=== PATIENT | female | born 1955 | race Caucasian/White ===

== ENCOUNTER 2018-08-07 11:57 | Emergency (ER) | payer BC ==
[~2018-08-07] VITALS: Ht 162.6 cm; Wt 122.7 kg
[~2018-08-07 11:57] MED LIST: ALBUTEROL1.25 MG/3 INH; COZAAR100 MG PO; EFFEXOR100 MG PO; LEVAQUIN750 MG PO; METAMUCIL FIB1 WAFER PO; MIRALAX17 GM PO; PERFOROMIS20 MCG/21 INH; PROTONIX40 MG PO; SINGULAIR10 MG PO; STERAPRED 5MG 125 MG PO
[2018-08-07 12:01] VITALS: Ht 162.6 cm; Wt 122.7 kg
[2018-08-07] MEDS ORDERED: BUPROPION XL150 MG PO (12:04)
[2018-08-07] MEDS ORDERED: CELEXA20 MG PO (12:05)
[2018-08-07] MEDS ORDERED: PROPRANOLOL HCL60 M1 PO (12:05)
[2018-08-07] MEDS ORDERED: NORVASC5 MG PO (12:06)
[2018-08-07] MEDS ORDERED: ZITHROMAX250 MG PO (12:06)
[2018-08-07 13:59] LABS: BASOPHILS 0.6 % (0-2); EOSINOPHILS 4.9 % (0-7); HEMATOCRIT 40.3 % (36.0-48.0); HEMOGLOBIN 13.7 g/dL (12-16); IMMATURE GRANULOCYTES 0.2 % (0-5); LYMPHOCYTES 41.4 % (15-50); MCV 91.2 fL (80.0-100.0); MEAN PLATELET VOLUME 9.7 fL (7.4-10.4); MONOCYTES 8.6 % (2-11); NEUTROPHILS 44.3 % (40-80); PLATELET COUNT 336 10x3/uL (130-400); RBC 4.42 10x6/uL (4.00-5.40); RDW 13.5 % (11.5-14.5); WBC 6.5 10x3/uL (4.8-10.8)
[2018-08-07 14:16] LABS: ALBUMIN 3.1 g/dL (3.4-5.0); ALKALINE PHOSPHATASE 74 U/L (46-116); ALT (SGPT) 26 U/L (10-68); BILIRUBIN - TOTAL 0.21 mg/dL (0.2-1.3); CALC OSMOLALITY 281 mosm/kg (275-300); CALCIUM 8.5 mg/dL (8.5-10.1); CARBON DIOXIDE 26.4 mmol/L (21.0-32.0); CHLORIDE - SERUM 107 mmol/L (98-107); CREATININE - SERUM 0.9 mg/dL (0.6-1.3); GLUCOSE 123 mg/dL (74-106); POTASSIUM - SERUM 4.1 mmol/L (3.5-5.1); PROTEIN - SERUM 7.1 g/dL (6.4-8.2); SODIUM 141 mmol/L (136-145); UREA NITROGEN 13 mg/dL (7-18); eGFR NON AFRICAN AMERICAN 67 mL/min (90-120)
[2018-08-07 14:26] LABS: CKMB 0.2 U/L (0.0-3.6); CREATINE KINASE 42 UL (21-215)
[2018-08-07 14:29] LABS: TROPONIN-I < 0.017 ng/mL (0.000-0.060)
[2018-08-07 14:30] LABS: APPEARANCE CLEAR (CLEAR); BILIRUBIN NEGATIVE (NEGATIVE); COLOR YELLOW (YELLOW); GLUCOSE NEGATIVE (NEGATIVE); KETONE NEGATIVE (NEGATIVE); NITRITE NEGATIVE (NEGATIVE); PROTEIN NEGATIVE (NEGATIVE); SPECIFIC GRAVITY 1.015 (1.005-1.020); UROBILINOGEN NORMAL (NORMAL)
[2018-08-07 17:36] VITALS: BP 120/70
== END 2018-08-07 17:28 | disposition home or self-care (01) ==
LOC: D.ER 11:57
PROVIDERS: Emergency Medicine
DX: R42 Dizziness and giddiness (principal); R00.1 Bradycardia, unspecified; I10 Essential (primary) hypertension

== ENCOUNTER → 2018-09-09 08:26 | Outpatient (CLI) | payer BC ==
[2018-08-07 12:01] VITALS: BMI 46.4
--- NOTE | ~2018-09-09 | ST ---
PATIENT:CANDY CONNORS MEDICAL RECORD: [id number] SEX: F LOCATION:[facility] ORDER #: ADMISSION DATE: 09/09/18 AGE OF PATIENT: 62 REFERRING PHYSICIAN: INTERPRETING PHYSICIAN: BENNIE WILL MD DATE OF SERVICE: 09/09/2018 PROCEDURE: Nuclear Stress Test. INDICATION: Angina, hypertension, palpitations. She was exercised on standard Lexiscan protocol with 32 mCi of sestamibi injected at peak stress, 11.0 mCi were used previously for rest images. FINDINGS: Gated SPECT reveals a preserved ejection fraction at 74% with good wall motioning and thickening and brightening throughout all segments. SPECT imaging: Cardiolite was used as myocardial perfusion agent. There is reversibility anteriorly, this includes the basal, mid, apical anterior segments. The degree of reversibility is moderate. The amount of myocardium involved is moderate. OVERALL IMPRESSION: 1. This is an abnormal nuclear stress test with reversible ischemia anteriorly. 2. Gated SPECT reveals preserved ejection fraction greater than 70%. In this patient with ongoing symptomatology, the current scan does suggest the presence of hemodynamically significant coronary artery disease. We will proceed with coronary angiography as followup study. TRANSINT:[id number] Voice Confirmation ID: [id number] DOCUMENT ID: [id number] BENNIE WILL MD at 1718 CC: BRIJESH KATHLEEN [id number] DICTATION DATE: 09/09/18 1644 BACK GRAY CLOTH WASHER: 09/10/18 0740 DEP CLI 09/09/18 [place] [id number] [place] [id number]
[~2018-09-09 08:26] MED LIST changes: +BUPROPION XL150 MG PO; +CELEXA20 MG PO; +NORVASC5 MG PO; +PROPRANOLOL HCL60 M1 PO; +ZITHROMAX250 MG PO
== END | disposition home or self-care (01) ==
LOC: D.HCCARDIO 08:26
DX: I20.9 Angina pectoris, unspecified (principal)

== ENCOUNTER 2018-09-18 09:19 | Outpatient (CLI) | payer BC ==
[~2018-09-18] VITALS: Ht 162.6 cm; Wt 125.0 kg
--- NOTE | ~2018-09-18 | HEMODYNAMI ---
PATIENT:CANDY CONNORS MEDICAL RECORD: [id number] : 55 LOCATION:[facility] ADMISSION DATE: 09/18/18 Generatedon:09/18/201812:34 Patient name: CANDY CONNORS Patient #: [id number] SSN: : 1955 Date of study: 09/18/2018 Page: Of Hemodynamic Procedure Report Patient Data Patient Demographics Procedure consent was obtained First Name: CANDY Gender: Female Last Name: DORY : 1955 [facility] Initial: DEAL Age: 62 year(s) Patient #: [id number] Race: Unknown Additional ID: [id number] Contact details Address: [address] [place] [address] [facility] State: [place] City: [facility] [place], [place] Zip code: [address] Past Medical History Allergies Allergen Reaction Date Comments Reported Other allergy 09/18/2018 Codiene, Hydrocodone. Admission Admission Data Admission Date: 09/18/2018 Admission Time: 9:19 Admit Source: Other Lab Results Lab Result Date: 09/18/2018 Lab Result Time: 9:40 Biochemistry Name Units Result Min Max BUN mg/dl 12 --(-*--)-- 7 18 Creatinine mg/dl 0.9 --(-*--)-- 0.6 1.3 CBC Name Units Result Min Max Hematocrit % 39.4 -*(----)-- 42 54 Hemoglobin g/dl 13.5 --(*---)-- 13.5 17.5 Procedure Procedure Types Cath Procedure Diagnostic Procedure LHC LHC w/Coronaries Procedure Description Procedure Date Procedure Date: 09/18/2018 Procedure Start Time: 12:24 Procedure End Time: 12:34 Procedure Staff Name Function Андрей Earl MD Performing Physician Luis Miguel Sommer RT Monitor Janina Toledo RT Scrub Toshia Peres RN Nurse Procedure Data Cath Procedure Contrast Material Contrast Material Type Amount (ml) Isovue 300 29 Entry Location Entry Primary Successful Side Size Upsize Upsize Entry Closure Mina ccessful Closure Location (Fr) 1 (Fr) 2 (Fr) Remarks Device Remarks Radial Right 6 Fr Mechanical artery Short Compression Estimated blood loss: 10 ml Diagnostic catheters Device Type Used For End Catheter Placement DIAGNOSTIC Adams 110cm 5 Procedure Fr catheter ([id number]) Procedure Complications No complications Procedure Medications Medication Administration Route Dosage 0.9% NaCl I.V. 100 ml/hr Oxygen etCO2 Nasal cannula 2 l/min Lidocaine 2% added to field 20 Heparin Flush Bag added to field 2 bags (1000units/500ml NS) Zofran I.V. 4 mg Radial Cocktail added to field 1 syringe (Verapomil 2mg/Nitro 400mcg/Heparin 1500units) Versed I.V. 2 mg Fentanyl I.V. 50 mcg Versed I.V. 2 mg Fentanyl I.V. 50 mcg Hemodynamics Rest HGB: 13.5 (g/dl) Heart Rate: 56 (bpm) Snapshots Pre Cath Intra NCS Post Cath Vital Signs Time Heart Resp SPO2 etCO2 NIBP (mmHg) Rhythm Pain Sedation Rate (ipm) (%) (mmHg) Status Level (bpm) 11:55:55 54 17 98 38.6 138/69(96) NSR 0 (11) 10(A) , No pain 12:00:41 59 19 96 40.8 133/73(104) NSR 0 (11) 10(A) , No pain 12:05:14 54 13 96 41.8 126/77(94) NSR 0 (11) 10(A) , No pain 12:09:53 55 13 96 40.1 117/72(90) NSR 0 (11) 10(A) , No pain 12:14:31 56 13 95 39.3 120/72(89) NSR 0 (11) 10(A) , No pain 12:19:10 55 13 97 40.8 115/69(86) NSR 0 (11) 10(A) , No pain 12:23:48 57 14 95 40.8 115/66(87) NSR 0 (11) 10(A) , No pain 12:28:29 65 12 98 40 123/59(89) NSR 0 (11) 10(A) , No pain 12:33:07 61 12 94 37 130/67(91) NSR 0 (11) 10(A) , No pain Medications Time Medication Route Dose Verified Delivered Reason Notes E ffectiveness by by 11:54:52 0.9% NaCl I.V. 100 Андрей Toshia used for ml/hr Mady Peres numerologist 11:54:59 Oxygen etCO2 2 l/min Андрей Toshia used for Nasal Mady Peres procedure cannula RN 11:55:04 Lidocaine 2% added 20ml Андрей Андрей for local to vial Mady Earl MD anesthetic field 11:55:08 Heparin Flush added 2 bags Андрей Андрей used for Bag to Mady Earl MD procedure (1000units/500ml field NS) 11:55:24 Zofran I.V. 4 mg Андрей Toshia for nausea Mady Peres RN 11:56:37 Radial Cocktail added 1 Андрей Toshia used for (Verapomil to syringe Mady Peres procedure 2mg/Nitro field RN 400mcg/Heparin 1500units) 12:20:42 Versed I.V. 2 mg Андрей Toshia for Mady Peres sedation RN 12:20:48 Fentanyl I.V. 50 mcg Андрей Toshia for Mady Peres sedation RN 12:25:54 Versed I.V. 2 mg Андрей Toshia for Mady Peres sedation RN 12:25:59 Fentanyl I.V. 50 mcg Андрей Toshia for Mady Peres sedation hand flesher Log Time Note 11:39:37 Informed consent obtained and on chart 11:39:42 Admit Source: Other 11:40:37 Diagnostic Cath status Elective 11:40:40 Janina Toledo RT(R) sent for patient. Start room use. 11:40:40 Time tracking: Regular hours (M-F 7:00 - 5:00) 11:40:45 Plan of Care:Hemodynamics will remain stable., Cardiac rhythm will remain stable., Comfort level will be maintained., Respiratory function will remain adequate., Patient/ family verbilizes understanding of procedure., Procedure tolerated without complication., Recovers from procedure without complications.. 11:42:19 H&P Date Dictated: 09/17/2018 Within 30 days and on chart., H&P Addendum completed by physician on day of procedure. (MUST COMPLETE FOR ALL OUTPATIENTS). 11:43:05 Lab Result : BUN 12 mg/dl 11:43:05 Lab Result : Creatinine 0.9 mg/dl 11:43:05 Lab Result : Hematocrit 39.4 % 11:43:05 Lab Result : Hemoglobin 13.5 g/dl 11:43:08 Lab results completed and on chart. 11:48:33 Patient received from Pre/Post Procedure Room to CCL 1 Alert and oriented. Tansferred to table in Supine position. 11:48:34 Warm blankets applied, and erika hugger turned on for patient comfort. 11:48:35 Correct patient and procedure confirmed by team. 11:48:36 ECG and BP/O2 sat monitors applied to patient. 11:54:13 Vital chart was started 11:54:52 0.9% NaCl 100 ml/hr I.V. was administered by Toshia Peres RN; used for procedure; 11:54:59 Oxygen 2 l/min etCO2 Nasal cannula was administered by Toshia Peres RN; used for procedure; 11:55:04 Lidocaine 2% 20ml vial added to field was administered by Андрей Earl MD; for local anesthetic; 11:55:08 Heparin Flush Bag (1000units/500ml NS) 2 bags added to field was administered by Андрей Earl MD; used for procedure; 11:55:24 Zofran 4 mg I.V. was administered by Toshia Peres RN; for nausea; 11:56:37 Radial Cocktail (Verapomil 2mg/Nitro 400mcg/Heparin 1500units) 1 syringe added to field was administered by Toshia Peres RN; used for procedure; 12:03:00 Baseline sample Acquired. 12:03:04 Rhythm: sinus rhythm 12:03:05 Full Disclosure recording started 12:03:06 Pre-procedure instructions explained to patient. 12:03:07 Pre-op teaching completed and patient verbalized understanding. 12:03:08 Family in waiting room. 12:03:10 Patient NPO since Midnight. 12:03:25 Patient allergic to Other allergyCodiene, Hydrocodone. 12:03:28 Is the patient allergic to Iodine/contrast media? No. 12:03:30 Is patient on blood thinner?No 12:03:31 Patient diabetic? No. 12:03:34 Previous problem with sedation/anesthesia? No ? 12:03:35 Snore? Yes 12:03:36 Sleep apnea? No 12:03:37 Deviated septum? No 12:03:38 Opens mouth fully? Yes 12:03:38 Sticks out tongue? Yes 12:03:43 Airway obstruction? No ? 12:03:46 Dentures? No ? 12:03:50 Modified Boris's test Ulnar < 7 seconds 12:03:51 Patient pain scale 0/10 ?. 12:03:55 IV patent on arrival in right forearm with 0.9% NaCl at [facility]. 12:04:00 Right Radial & Right Groin area was prepped with chlora-prep and draped in sterile fashion 12:04:01 Alarms reviewed by R. N. 12:04:01 Sharps counted by scrub and verified by R.N. 12:04:04 Use device set Radial Dx or PCI 12:04:05 ACIST Syringe (92819) opened to sterile field. 12:04:05 Medline Cath Pack ([id number]) opened to sterile field. 12:04:06 Bag Decanter (2002S) opened to sterile field. 12:04:06 ACIST Hand Control (82242) opened to sterile field. 12:04:07 ACIST Manifold (26143) opened to sterile field. 12:04:07 Tegaderm 4 x 4 (1626W) opened to sterile field. 12:04:08 MBrace Wrist Support ([id number]) opened to sterile field. 12:04:09 SHEATH 6FR Slender (87-5990) opened to sterile field. 12:04:10 DIAGNOSTIC WIRE .035 260cm J wire (284394) opened to sterile field. 12:08:54 Zero performed for pressure channel P1 12:19:04 Physician arrived 12:19:04 --------ALL STOP TIME OUT------ 12:19:05 Final Timeout: patient, procedure, and site verified with staff and physician. All members of the team are in agreement. 12:19:07 Right Radial & Right Groin site verified by team. 12:19:09 Physical assessment completed. ASA score P 2 - A patient with mild systemic disease as per Андрей Earl MD. 12:19:12 Sedation plan: IV Moderate Sedation Medication:Versed, Fentanyl 12:20:42 Versed 2 mg I.V. was administered by Toshia Ja RN; for sedation; 12::48 Fentanyl 50 mcg I.V. was administered by Toshia Peres RN; for sedation; 12::40 Procedure started. 12::44 Local anesthetic to right radial artery with Lidocaine 2% by Андрей Earl MD.INITIAL ACCESS ONLY 12:24:52 A 6 Fr Short sheath was inserted into the Right Radial artery 12::45 A DIAGNOSTIC Adams 110cm 5 Fr catheter (775187) was advanced over the wire and used for Procedure. 12::54 Versed 2 mg I.V. was administered by Toshia Peres RN; for sedation; 12::59 Fentanyl 50 mcg I.V. was administered by Toshia Peres RN; for sedation; 12::36 LV gram done using BURNS 12::38 Injector settings: Ml/sec: 5, Volume: 15, 12::40 LV hemodynamics recorded. 12::45 EF : 60 % 12:27:04 RCA angiography performed. 12::35 Catheter exchanged over wire. 12::41 GUIDE 6FR XB 3.5 catheter ([id number]) opened to sterile field. 12::49 6 Fr XB 3.5 guide catheter was inserted over the wire 12::41 LCA angiography performed. 12:29:18 Catheter removed. 12:29:24 TR BAND Standard ([id number]) opened to sterile field. 12:29:31 Sheath removed intact; hemostasis achieved with Mechanical Compression to the Right Radial artery. 12:29:33 Procedure ended.(Physican Out) 12:29:37 Contrast amount:Isovue 300 29ml. 12:30:27 Sharps counted by scrub and verified by R.N. 12:30:33 TR band inflated with 12cc of air. 12:31:27 Insertion/operative site no bleeding no hematoma. 12:32:24 Post right radial artery:stable, soft, clean and dry 12:32:26 Post Procedure Pulses reassessed and unchanged 12:32:28 Post-procedure physical assessment completed. ASA score P 2 - A patient with mild systemic disease as per Андрей Earl MD. 12:32:30 Post procedure rhythm: unchanged. 12:32:32 Estimated blood loss: 10 ml 12:32:34 Post procedure instruction explained to patient.Patient verbalizes understanding. 12:32:35 Patient needs reinforcement of post procedure teaching. 12:33:54 Procedure and supply charges have been captured, reviewed, submitted and are correct. 12:33:56 Procedure Complication : No complications 12:33:58 Vital chart was stopped 12:33:58 See physician's report for complete and final results. 12:34:00 Report given to Pre/Post Procedure Room. 12:34:02 Patient transfered to Pre/Post Procedure Room with Stretcher. 12:34:04 Procedure ended. 12:34:04 Full Disclosure recording stopped 12:34:08 End room use (Document Last) Device Usage Item Name Manufacture Quantity Catalog Hospital Part Current Minimal Lot# / Number Charge Number Stock Stock Serial# Code ACIST Acist 1 [id number] [id number] 339474 251605 20 Syringe Medical (00680) Systems Inc Medline Medline 1 [id number] 393930 11575 762950 5 Cath Pack ([id number]) Bag Microtek 1 2001S 494152 32160 212974 5 Decanter Medical Inc. () ACIST Hand Acist 1 45684 765989 800635 934683 5 Control Medical (55986) Systems Inc ACIST Acist 1 75794 539432 099622 624495 5 Manifold Medical (70304) Systems Inc Tegaderm 4 3M 1 1626W 568771 496807 551985 5 x 4 (1626W) MBrace Advanced 1 140-0250-00 538989 30185 233549 5 Wrist Vascular Support Dynamics ([id number]) SHEATH 6FR Terumo 1 [id number] 589379 342447 802389 5 Slender (80-1060) DIAGNOSTIC St Giancarlo 1 819954 541070 671758 324188 30 WIRE .035 260cm J wire (925063) DIAGNOSTIC Terumo 1 40-9593 853934 903244 301155 5 Adams 110cm 5 Fr catheter (535578) GUIDE 6FR Cardinal 1 [id number] 574940 795349 443211 2 XB 3.5 Health catheter (55389333) TR BAND Terumo 1 [id number] 067907 602552 919410 40 Standard ([id number]) Signature Audit [place] Stage Time Signature Unsigned Intra-Procedure 09/18/2018 Luis Miguel Sommer 12:34:24 PM RT(R) Signatures Monitor : Luis Miguel Sommer RT Signature : Date : Time : [facility] [address] [place] [address]
--- NOTE | ~2018-09-18 | OP ---
PATIENT NAME: CANDY CONNORS MEDICAL RECORD: [id number] :55 LOCATION:[facility] ADMISSION DATE: SURGEON: BENNIE WILL MD DATE OF OPERATION: 09/18/2018 PROCEDURES: 1. Left heart catheterization. 2. Selective coronary angiography. 3. Left ventriculogram. INDICATION: Chest pain compatible with angina. PROCEDURE IN DETAIL: After informed consent was obtained and after a detailed explanation of risks, benefits as well as alternative therapies, the patient elected to proceed with angiogram and heart catheterization. The right radial area was prepped and draped in normal sterile fashion. Right radial artery was cannulated via modified Seldinger technique with placement of 5-Jamaican sheath. All catheters exchanged through this sheath. FINDINGS: The left ventriculogram was performed in standard 30-degree BURNS view, reveals good cardiac wall motion throughout all segments. Overall ejection fraction estimated 60%. SELECTIVE CORONARY ANGIOGRAPHY: Left main, left anterior descending, left circumflex, and right coronary artery are all smooth-walled vessels. No angiographic evidence of coronary artery disease. OVERALL IMPRESSION: 1. No angiographic evidence of coronary artery disease. 2. Normal left ventricular systolic function. Normal left heart pressures. Chest pain is noncardiac in etiology. No further cardiac workup needs to be ascertained. TRANSINT:[id number] Voice Confirmation ID: [id number] DOCUMENT ID: [id number] BENNIE WILL MD at 1025 CC: [id number] DICTATION DATE: 09/18/18 1233 WATERSHED COORDINATOR: 09/18/18 1300 DEP CLI 09/18/[address] [address]
[2018-09-18] MEDS ORDERED: TOPROL XL50 MG PO (09:35)
[2018-09-18 09:43] VITALS: BP 117/56; Ht 162.6 cm; Wt 125.0 kg
[2018-09-18 10:07] LABS: BASOPHILS 0.7 % (0-2); EOSINOPHILS 5.1 % (0-7); HEMATOCRIT 39.4 % (36.0-48.0); HEMOGLOBIN 13.5 g/dL (12-16); IMMATURE GRANULOCYTES 0.2 % (0-5); LYMPHOCYTES 33.2 % (15-50); MCH 31.3 pg (26.0-34.0); MCHC 34.3 g/dL (31.0-37.0); MCV 91.4 fL (80.0-100.0); MEAN PLATELET VOLUME 10.9 fL (7.4-10.4); MONOCYTES 7.7 % (2-11); NEUTROPHILS 53.1 % (40-80); PLATELET COUNT 438 10x3/uL (130-400); RBC 4.31 10x6/uL (4.00-5.40); RDW 13.4 % (11.5-14.5); WBC 5.9 10x3/uL (4.8-10.8)
[2018-09-18 10:17] LABS: CALCIUM 8.7 mg/dL (8.5-10.1); CARBON DIOXIDE 24.5 mmol/L (21.0-32.0); CREATININE - SERUM 0.9 mg/dL (0.6-1.3); POTASSIUM - SERUM 4.5 mmol/L (3.5-5.1)
== END 2018-09-18 14:40 | disposition home or self-care (01) ==
LOC: D.CATH 09:19
PROVIDERS: Internal Medicine Interventional Cardiology
DX: R07.89 Other chest pain (principal); Z01.812 Encounter for preprocedural laboratory examination